=== PATIENT | male | born 1980 | race Caucasian/White ===

== ENCOUNTER 2021-03-09 17:02 | Inpatient (IN) ==
[2021-03-09] MEDS ORDERED: Ondansetron 4 MG/2 ML VIAL IVP PRN (20:11)
[2021-03-09] MEDS ORDERED: Naloxone 0.4 MG/ML INJ IVP PRN (20:11)
[2021-03-10] MEDS: Ketorolac 15 MG/ML VIAL IVP PRN ×3 (04:55→23:42)
[2021-03-10 05:39] LABS: Hematocrit 42.6 % (37.5-50.1); Hemoglobin 14.8 g/dL (12.9-16.9); Mean Corpuscular HGB Conc 34.7 g/dL (31.6-35.5); Mean Corpuscular Hemoglobin 30.3 pg (28.0-33.3); Mean Corpuscular Volume 87.3 fL (83.0-100.0); Mean Platelet Volume 11.1 fL (9.4-12.4); Platelet Count 149 K/mcL (140-400); Red Blood Count 4.88 M/mcL (4.19-5.50); Red Cell Distribution Width 13.2 % (11.5-14.5)
[2021-03-10 07:40] LABS: BUN/Creatinine Ratio 24 (6-26); Blood Urea Nitrogen 18 mg/dL (6-20); Calcium 8.9 mg/dL (8.6-10.3); Carbon Dioxide 26 mEq/L (23-29); Chloride 105 mEq/L (98-107); Glucose 104 mg/dL (70-105); Osmolality,Calculated 284 (280-300); Potassium 3.9 mEq/L (3.5-5.1); Sodium 136 mEq/L (136-145); eGFR For African Americans > 60 (> 60); eGFR For Non-African Americans > 60 (> 60)
[2021-03-10] MEDS ORDERED: Lidocaine/EPI 1:200k 1% PF 10 ML VIAL ONE (17:56)
[2021-03-10] MEDS ORDERED: *HR* OxyCODONE Immed Rel 5 MG TABLET PO PRN (18:17)
[2021-03-10] MEDS ORDERED: Ondansetron 4 MG/2 ML VIAL ONE (18:37)
[2021-03-10] MEDS ORDERED: Lidocaine -MPF 2% 2 ML VIAL ONE (18:42)
[2021-03-10] MEDS ORDERED: *HR* FentaNYL (PF) 100 MCG/2 ML VIAL ONE (18:42)
[2021-03-10] MEDS ORDERED: *HR* Propofol 200 MG/20 ML VIAL IVP ONE (18:42)
[2021-03-10] MEDS ORDERED: Ketorolac 30 MG/ML VIAL ONE (18:44)
[2021-03-10] MEDS: *HR* HYDROmorphone PF 0.5 MG/0.5 ML SYRINGE IVP PRN ×4 (19:17→19:41)
[2021-03-10] MEDS ORDERED: Naloxone 0.4 MG/ML INJ IVP PRN (20:13)
[2021-03-10] MEDS ORDERED: Ondansetron 4 MG/2 ML VIAL IVP PRN (20:13)
[2021-03-11] MEDS ORDERED: Acetaminophen IV 1,000 MG/100 ML BAG IVPB ONE (02:52)
[2021-03-11] MEDS: Ketorolac 15 MG/ML VIAL IVP PRN (10:33)
[2021-03-11] MEDS ORDERED: Acetaminophen 325 MG TABLET PO PRN (14:35)
[2021-03-11] MEDS: Vancomycin 1,250 MG/262.5 ML IV.SOLN IVPB SCH (18:30)
[2021-03-12] MEDS: Vancomycin 1,250 MG/262.5 ML IV.SOLN IVPB SCH (05:38)
[2021-03-12 06:04] LABS: BUN/Creatinine Ratio 16 (6-26); Blood Urea Nitrogen 11 mg/dL (6-20); eGFR For African Americans > 60 (> 60); eGFR For Non-African Americans > 60 (> 60)
[2021-03-12 14:43] VITALS: BP 120/70
== END 2021-03-12 17:30 | disposition home or self-care (01) | DRG 364 ==
LOC: 3NENU → SUATTDRO 19:45
PROVIDERS: ADMIT Internal Medicine; ATTEND Internal Medicine

== ENCOUNTER 2021-12-06 10:22 | Inpatient (IN) ==
[~2021-12-06 10:22] MED LIST: Famotidine 20 MG TABLET PO ONE
[2021-12-06] MEDS ORDERED: *HR* Propofol 200 MG/20 ML VIAL IVP ONE (10:40)
[2021-12-06] MEDS ORDERED: *HR* FentaNYL (PF) 100 MCG/2 ML VIAL ONE (10:40)
[2021-12-06] MEDS ORDERED: Lidocaine/EPI 1:100k 1% 30 ML VIAL ONE (10:41)
[2021-12-06] MEDS ORDERED: Ringers Solution, Lactated 1,000 ML IVC SCH (11:00)
[2021-12-06] MEDS ORDERED: *HR* FentaNYL (PF) 100 MCG/2 ML VIAL IVP PRN (11:02)
[2021-12-06] MEDS ORDERED: *HR* HYDROmorphone PF 0.5 MG/0.5 ML SYRINGE IVP PRN (11:02)
[2021-12-06] MEDS ORDERED: Ondansetron 4 MG/2 ML VIAL IVP PRN (11:02)
[2021-12-06] MEDS ORDERED: Ondansetron 4 MG/2 ML VIAL ONE (11:57)
[2021-12-06] MEDS ORDERED: *HR* Midazolam HCl 2 MG/2 ML VIAL ONE (11:57)
[2021-12-06] MEDS ORDERED: Lidocaine -MPF 2% 5 ML VIAL ONE (11:57)
[2021-12-06] MEDS ORDERED: Vancomycin 1,000 MG VIAL ONE (12:27)
[2021-12-06] MEDS ORDERED: Naloxone 0.4 MG/ML INJ IVP PRN (15:26)
[2021-12-06] MEDS ORDERED: Ondansetron ODT 4 MG TAB.RAPDIS SL PRN (15:26)
[2021-12-06] MEDS ORDERED: Acetaminophen 325 MG TABLET PO PRN (15:26)
[2021-12-06] MEDS ORDERED: Melatonin 3 MG TABLET PO PRN (15:26)
[2021-12-06] MEDS: ceFAZolin 2,000 MG in 0.9 % Sodium Chloride 100 ML IVPB SCH ×2 (18:10→23:02)
[2021-12-06] MEDS: *HR* Heparin 5,000 UNIT/ML VIAL SQ SCH (23:02)
[2021-12-07] MEDS: *HR* Heparin 5,000 UNIT/ML VIAL SQ SCH ×3 (05:22→23:13)
[2021-12-07 05:53] LABS: Basophils % 0.2 %; Eosinophils % 0.2 %; Hematocrit 39.2 % (37.5-50.1); Hemoglobin 13.4 g/dL (12.9-16.9); Immature Granulocytes % 0.3 % (0-4); Lymphocytes # 2.2 K/mcL (0.6-4.6); Lymphocytes % 21.2 %; Mean Corpuscular HGB Conc 34.2 g/dL (31.6-35.5); Mean Corpuscular Hemoglobin 30.7 pg (28.0-33.3); Mean Corpuscular Volume 89.7 fL (83.0-100.0); Mean Platelet Volume 11.3 fL (9.4-12.4); Monocytes # 0.8 K/mcL (0.0-1.3); Monocytes % 7.8 %; Neutrophils # 7.2 K/mcL (1.6-8.9); Platelet Count 143 K/mcL (140-400); Red Blood Count 4.37 M/mcL (4.19-5.50); Segmented Neutrophils % 70.3 %; White Blood Count 10.3 K/mcL (4.3-11.1)
[2021-12-07 06:22] LABS: BUN/Creatinine Ratio 18 (6-26); Blood Urea Nitrogen 15 mg/dL (6-20); Calcium 8.4 mg/dL (8.6-10.3); Carbon Dioxide 27 mEq/L (23-29); Chloride 106 mEq/L (98-107); Glucose 138 mg/dL (70-105); Osmolality,Calculated 287 (280-300); Potassium 4.4 mEq/L (3.5-5.1); Sodium 137 mEq/L (136-145); eGFR For African Americans > 60 (> 60); eGFR For Non-African Americans > 60 (> 60)
[2021-12-07] MEDS: ceFAZolin 2,000 MG in 0.9 % Sodium Chloride 100 ML IVPB SCH ×3 (07:31→23:12)
[2021-12-07] MEDS: *HR* HYDROcodone/Acet 5/325 mg TABLET PO PRN ×2 (08:19→16:46)
[2021-12-07] MEDS: Vancomycin 1,250 MG/262.5 ML IV.SOLN IVPB SCH (16:42)
[2021-12-08] MEDS: Vancomycin 1,250 MG/262.5 ML IV.SOLN IVPB SCH ×2 (02:56→17:00)
[2021-12-08] MEDS: *HR* HYDROcodone/Acet 5/325 mg TABLET PO PRN ×2 (02:56→16:59)
[2021-12-08 05:08] LABS: C-Reactive Protein < 5 mg/L (Less than 10)
[2021-12-08] MEDS: *HR* Heparin 5,000 UNIT/ML VIAL SQ SCH ×3 (05:55→21:30)
[2021-12-08 06:43] VITALS: O2SAT 97
[2021-12-08] MEDS: ceFAZolin 2,000 MG in 0.9 % Sodium Chloride 100 ML IVPB SCH ×2 (07:53→16:59)
[2021-12-09] MEDS: ceFAZolin 2,000 MG in 0.9 % Sodium Chloride 100 ML IVPB SCH ×4 (00:42→23:51)
[2021-12-09] MEDS: *HR* HYDROcodone/Acet 5/325 mg TABLET PO PRN ×4 (00:48→23:51)
[2021-12-09] MEDS: Vancomycin 1,500 MG/265 ML IV.SOLN IVPB SCH ×2 (05:38→18:33)
[2021-12-09] MEDS: *HR* Heparin 5,000 UNIT/ML VIAL SQ SCH ×3 (05:42→20:48)
[2021-12-09] MEDS: Nicotine 21 MG PATCH.TD24 TD SCH (14:04)
[2021-12-09 17:08] LABS: eGFR For African Americans > 60 (> 60); eGFR For Non-African Americans > 60 (> 60)
[2021-12-09 21:15] VITALS: BP 119/75; PULSE 65; TEMP 98.4
[2021-12-10] MEDS: *HR* Heparin 5,000 UNIT/ML VIAL SQ SCH (06:03)
[2021-12-10] MEDS: *HR* HYDROcodone/Acet 5/325 mg TABLET PO PRN (06:06)
[2021-12-10] MEDS: Vancomycin 1,500 MG/265 ML IV.SOLN IVPB SCH (06:07)
[2021-12-10] MEDS: ceFAZolin 2,000 MG in 0.9 % Sodium Chloride 100 ML IVPB SCH (07:55)
[2021-12-10] MEDS: Nicotine 21 MG PATCH.TD24 TD SCH (07:57)
== END 2021-12-10 11:02 | disposition home health service (06) | DRG 316 ==
LOC: 4WAOSI 10:22 → SDCAOSI 10:22 → 4WAOSI 13:51 → SUATTDRO 12-08 15:51
PROVIDERS: ADMIT Internal Medicine; ATTEND Hospitalist